=== PATIENT | male | born 1995 | race Caucasian/White ===

== ENCOUNTER 2018-02-15 14:45 | Emergency (ER) | payer MEDICAID, OTHER, SELFPAY ==
[2018-02-15 14:48] VITALS: BP 136/76
== END 2018-02-15 15:34 | disposition home or self-care (01) ==
LOC: ED 15:30
DX: S40.272A Other superficial bite of left shoulder, initial encounter (principal); Y04.1XXA Assault by human bite, initial encounter; Y93.89 Activity, other specified; Y92.410 Unspecified street and highway as the place of occurrence of the external cause; Y99.8 Other external cause status
CPT/HCPCS: 99283